=== PATIENT | male | born 1945 | race Caucasian/White ===

== ENCOUNTER 2022-06-04 14:20 | Inpatient (IN) | payer MEDICARE, BC ==
[2022-06-04] MEDS ORDERED: traMADol HCl 50 MG TAB PO PRN (23:20)
[2022-06-04] MEDS ORDERED: HYDROcodone/Acetaminophen 10/325 mg Tablet PO PRN (23:23)
[2022-06-05] MEDS ORDERED: Methocarbamol 500 MG TAB PO SCH (09:00)
[2022-06-05] MEDS ORDERED: Losartan 25 MG TAB PO SCH (09:00)
[2022-06-05] MEDS ORDERED: Famotidine 20 MG TAB PO SCH ×2 (09:00→21:00)
[2022-06-05] MEDS ORDERED: Carvedilol 25 MG TAB PO SCH (09:00)
[2022-06-05] MEDS ORDERED: Saccharomyces boulardii 250 MG CAP PO SCH (09:00)
[2022-06-05] MEDS ORDERED: Potassium Chloride 20 MEQ TAB PO SCH (09:00)
[2022-06-05] MEDS ORDERED: Aspirin 325 MG TAB PO SCH (09:00)
[2022-06-05] MEDS: Rifampin 150 MG CAP PO SCH ×2 (10:18→21:31)
[2022-06-05] MEDS ORDERED: traMADol HCl 50 MG TAB PO PRN ×2 (12:43→13:23)
[2022-06-05 13:09] LABS: #Eosinphils 0.3 thou/uL (0.0-0.7); #Lymphocytes 1.5 thou/uL (1.20-3.40); #Monocytes 0.4 thou/uL (0.11-0.59); #Neutrophils 5.9 thou/uL (1.40-6.50); %Basophils 0.5 % (0.0-1.0); %Eosinophils 4.2 % (0.0-10.0); %Lymphocytes 18.1 % (21.0-51.0); %Monocytes 4.5 % (0.0-10.0); %Neutrophils 72.6 % (42.0-75.0); Mean Corpuscular HGB CONC 31.7 g/dL (32.0-36.0); Mean Corpuscular Volume 81.9 fl (78.0-98.0); Mean Platelet Volume 6.2 fL (7.4-10.4); Platelet Count 287 10x3/uL (130-400); RBC Distribution Width 15.9 % (11.5-14.5); Red Blood Cell (RBC) Count 3.08 mill/uL (4.70-6.10); White Blood Cell (WBC) Count 8.1 10x3/uL (4.8-10.8)
[2022-06-05 13:20] LABS: ALT (SGPT) 23 U/L (8-55); AST (SGOT) 23 U/L (5-34); Albumin 2.7 g/dL (3.4-4.8); Alkaline Phosphatase 177 U/L (40-110); Anion Gap 14 mmol/L (10-20); BUN (Urea Nitrogen) 13 mg/dL (8.4-25.7); Bilirubin, Total 0.4 mg/dL (0.2-1.2); Calc. Creatinine Clearance 104 mL/min (70-130); Calcium 8.5 mg/dL (7.8-10.44); Carbon Dioxide 23 mmol/L (23-31); Chloride 104 mmol/L (98-107); Estimated GFR 69; Globulin 3.9 g/dL (2.4-3.5); Glucose 124 mg/dL (83-110); Protein, Total 6.6 g/dL (5.8-8.1); Sodium 138 mmol/L (136-145)
[2022-06-05] MEDS: Methocarbamol 500 MG TAB PO SCH ×2 (15:57→21:52)
[2022-06-05] MEDS ORDERED: RIFAMPIN 300 MG PO SCH (21:00)
[2022-06-05] MEDS ORDERED: Terazosin HCl 5 MG CAP PO SCH (21:00)
[2022-06-05] MEDS: Floranex 1 GM Packet PO SCH (21:26)
[2022-06-05] MEDS: Potassium Chloride 20 MEQ TAB PO SCH (21:30)
[2022-06-05] MEDS: Aspirin 325 MG TAB PO SCH (21:31)
[2022-06-05] MEDS: Famotidine 20 MG TAB PO SCH (21:31)
[2022-06-05] MEDS: Terazosin HCl 5 MG CAP PO SCH (21:31)
[2022-06-05] MEDS: Carvedilol 25 MG TAB PO SCH (21:32)
[2022-06-06] MEDS ORDERED: DAPTOmycin 500 MG VIAL IVPB SCH (09:00)
[2022-06-06] MEDS: Rifampin 150 MG CAP PO SCH ×2 (10:01→20:48)
[2022-06-06] MEDS: Potassium Chloride 20 MEQ TAB PO SCH ×2 (10:01→20:47)
[2022-06-06] MEDS: Floranex 1 GM Packet PO SCH ×2 (10:01→20:47)
[2022-06-06] MEDS: Aspirin 325 MG TAB PO SCH ×2 (10:01→20:47)
[2022-06-06] MEDS: Methocarbamol 500 MG TAB PO SCH ×3 (10:02→20:48)
[2022-06-06] MEDS: Carvedilol 25 MG TAB PO SCH ×2 (10:02→20:48)
[2022-06-06] MEDS: Losartan 25 MG TAB PO SCH (10:02)
[2022-06-06] MEDS: Famotidine 20 MG TAB PO SCH ×2 (10:02→20:47)
[2022-06-06] MEDS: Terazosin HCl 5 MG CAP PO SCH (20:47)
[2022-06-07] MEDS: Rifampin 150 MG CAP PO SCH ×2 (10:25→20:57)
[2022-06-07] MEDS: Losartan 25 MG TAB PO SCH (10:25)
[2022-06-07] MEDS: Potassium Chloride 20 MEQ TAB PO SCH ×2 (10:25→20:21)
[2022-06-07] MEDS: Carvedilol 25 MG TAB PO SCH ×2 (10:26→20:21)
[2022-06-07] MEDS: Floranex 1 GM Packet PO SCH ×2 (10:26→20:22)
[2022-06-07] MEDS: Famotidine 20 MG TAB PO SCH ×2 (10:26→20:21)
[2022-06-07] MEDS: Methocarbamol 500 MG TAB PO SCH ×3 (10:26→20:21)
[2022-06-07] MEDS: Aspirin 325 MG TAB PO SCH ×2 (10:26→20:21)
[2022-06-07] MEDS: Terazosin HCl 5 MG CAP PO SCH (20:21)
[2022-06-08 05:38] LABS: #Eosinphils 0.3 thou/uL (0.0-0.7); #Lymphocytes 1.6 thou/uL (1.20-3.40); #Monocytes 0.6 thou/uL (0.11-0.59); #Neutrophils 6.2 thou/uL (1.40-6.50); %Basophils 0.6 % (0.0-1.0); %Eosinophils 3.8 % (0.0-10.0); %Lymphocytes 17.8 % (21.0-51.0); %Monocytes 7.1 % (0.0-10.0); %Neutrophils 70.7 % (42.0-75.0); Mean Corpuscular HGB CONC 31.2 g/dL (32.0-36.0); Mean Corpuscular Hemoglobin 25.6 pg (27.0-31.0); Mean Corpuscular Volume 81.9 fl (78.0-98.0); Mean Platelet Volume 6.5 fL (7.4-10.4); Platelet Count 253 10x3/uL (130-400); RBC Distribution Width 15.9 % (11.5-14.5); Red Blood Cell (RBC) Count 3.14 mill/uL (4.70-6.10); White Blood Cell (WBC) Count 8.8 10x3/uL (4.8-10.8)
[2022-06-08 05:48] LABS: ALT (SGPT) 18 U/L (8-55); AST (SGOT) 18 U/L (5-34); Albumin 2.5 g/dL (3.4-4.8); Alkaline Phosphatase 160 U/L (40-110); Anion Gap 13 mmol/L (10-20); BUN (Urea Nitrogen) 23 mg/dL (8.4-25.7); Bilirubin, Total 0.2 mg/dL (0.2-1.2); Calc. Creatinine Clearance 88 mL/min (70-130); Calcium 8.5 mg/dL (7.8-10.44); Carbon Dioxide 20 mmol/L (23-31); Chloride 109 mmol/L (98-107); Estimated GFR 56; Glucose 112 mg/dL (83-110); Protein, Total 6.5 g/dL (5.8-8.1); Sodium 139 mmol/L (136-145)
[2022-06-08] MEDS ORDERED: Potassium Chloride 20 MEQ TAB PO SCH (08:00)
[2022-06-08] MEDS: Losartan 25 MG TAB PO SCH (10:13)
[2022-06-08] MEDS: Famotidine 20 MG TAB PO SCH ×2 (10:14→21:04)
[2022-06-08] MEDS: Aspirin 325 MG TAB PO SCH ×2 (10:14→21:04)
[2022-06-08] MEDS: Rifampin 150 MG CAP PO SCH ×2 (10:14→21:04)
[2022-06-08] MEDS: Floranex 1 GM Packet PO SCH ×2 (10:15→21:05)
[2022-06-08] MEDS: Carvedilol 25 MG TAB PO SCH ×2 (10:15→21:04)
[2022-06-08] MEDS: Methocarbamol 500 MG TAB PO SCH ×3 (10:15→21:04)
[2022-06-08] MEDS: Potassium Chloride 20 MEQ TAB PO SCH ×2 (12:14→18:27)
[2022-06-08] MEDS: Terazosin HCl 5 MG CAP PO SCH (21:04)
[2022-06-09] MEDS: Losartan 25 MG TAB PO SCH (08:13)
[2022-06-09] MEDS: Floranex 1 GM Packet PO SCH ×2 (08:14→20:39)
[2022-06-09] MEDS: Carvedilol 25 MG TAB PO SCH ×2 (08:14→20:38)
[2022-06-09] MEDS: Potassium Chloride 20 MEQ TAB PO SCH ×3 (08:14→17:08)
[2022-06-09] MEDS: Famotidine 20 MG TAB PO SCH ×2 (08:14→20:36)
[2022-06-09] MEDS: Methocarbamol 500 MG TAB PO SCH ×3 (08:14→20:36)
[2022-06-09] MEDS: Aspirin 325 MG TAB PO SCH ×2 (08:14→20:36)
[2022-06-09] MEDS: HYDROcodone/Acetaminophen 10/325 mg Tablet PO PRN ×2 (08:17→20:36)
[2022-06-09] MEDS: Rifampin 150 MG CAP PO SCH ×2 (08:20→21:15)
[2022-06-09] MEDS: Terazosin HCl 5 MG CAP PO SCH (20:36)
[2022-06-10 05:25] LABS: Anion Gap 12 mmol/L (10-20); BUN (Urea Nitrogen) 22 mg/dL (8.4-25.7); Calc. Creatinine Clearance 95 mL/min (70-130); Carbon Dioxide 19 mmol/L (23-31); Chloride 112 mmol/L (98-107); Estimated GFR 60; Glucose 100 mg/dL (83-110); Potassium 3.5 mmol/L (3.5-5.1); Sodium 139 mmol/L (136-145)
[2022-06-10 06:58] LABS: Calcium 8.6 mg/dL (7.8-10.44)
[2022-06-10 08:43] VITALS: BMI 35.2
[2022-06-10] MEDS: Rifampin 150 MG CAP PO SCH ×2 (09:51→20:51)
[2022-06-10] MEDS: Losartan 25 MG TAB PO SCH (09:51)
[2022-06-10] MEDS: Methocarbamol 500 MG TAB PO SCH ×3 (09:52→20:51)
[2022-06-10] MEDS: Potassium Chloride 20 MEQ TAB PO SCH ×2 (09:52→16:15)
[2022-06-10] MEDS: Floranex 1 GM Packet PO SCH ×2 (09:53→20:50)
[2022-06-10] MEDS: Famotidine 20 MG TAB PO SCH ×2 (09:53→20:52)
[2022-06-10] MEDS: Aspirin 325 MG TAB PO SCH ×2 (09:53→20:52)
[2022-06-10] MEDS: Carvedilol 25 MG TAB PO SCH ×2 (09:53→20:52)
[2022-06-10] MEDS: Terazosin HCl 5 MG CAP PO SCH (20:52)
[2022-06-11] MEDS: Rifampin 150 MG CAP PO SCH ×2 (09:51→20:54)
[2022-06-11] MEDS: Losartan 25 MG TAB PO SCH (09:52)
[2022-06-11] MEDS: Aspirin 325 MG TAB PO SCH ×2 (09:53→20:54)
[2022-06-11] MEDS: Carvedilol 25 MG TAB PO SCH ×2 (09:53→20:54)
[2022-06-11] MEDS: Famotidine 20 MG TAB PO SCH ×2 (09:53→20:55)
[2022-06-11] MEDS: Loperamide HCl 2 MG CAP PO PRN ×3 (09:53→20:57)
[2022-06-11] MEDS: Methocarbamol 500 MG TAB PO SCH ×3 (09:53→20:54)
[2022-06-11] MEDS: Floranex 1 GM Packet PO SCH ×2 (09:54→20:55)
[2022-06-11] MEDS: Potassium Chloride 20 MEQ TAB PO SCH ×3 (09:55→17:32)
[2022-06-11] MEDS: Terazosin HCl 5 MG CAP PO SCH (20:54)
[2022-06-12] MEDS: Rifampin 150 MG CAP PO SCH ×2 (09:57→20:37)
[2022-06-12] MEDS: Methocarbamol 500 MG TAB PO SCH ×3 (09:57→20:38)
[2022-06-12] MEDS: Floranex 1 GM Packet PO SCH ×2 (09:57→20:36)
[2022-06-12] MEDS: Losartan 25 MG TAB PO SCH (09:58)
[2022-06-12] MEDS: Aspirin 325 MG TAB PO SCH ×2 (09:58→20:36)
[2022-06-12] MEDS: Potassium Chloride 20 MEQ TAB PO SCH ×3 (09:58→17:37)
[2022-06-12] MEDS: Famotidine 20 MG TAB PO SCH ×2 (09:59→20:38)
[2022-06-12] MEDS: Carvedilol 25 MG TAB PO SCH ×2 (09:59→20:38)
[2022-06-12] MEDS: Terazosin HCl 5 MG CAP PO SCH (20:37)
[2022-06-13] MEDS: Famotidine 20 MG TAB PO SCH ×2 (10:06→21:46)
[2022-06-13] MEDS: Floranex 1 GM Packet PO SCH ×2 (10:06→21:46)
[2022-06-13] MEDS: Losartan 25 MG TAB PO SCH (10:07)
[2022-06-13] MEDS: Carvedilol 25 MG TAB PO SCH ×2 (10:07→21:46)
[2022-06-13] MEDS: Potassium Chloride 20 MEQ TAB PO SCH ×3 (10:07→17:54)
[2022-06-13] MEDS: Rifampin 150 MG CAP PO SCH ×2 (10:07→21:45)
[2022-06-13] MEDS: Methocarbamol 500 MG TAB PO SCH ×3 (10:07→21:46)
[2022-06-13] MEDS: Aspirin 325 MG TAB PO SCH ×2 (10:08→21:46)
[2022-06-13] MEDS: Terazosin HCl 5 MG CAP PO SCH (21:45)
[2022-06-14 05:11] LABS: #Basophils 0.1 thou/uL (0.0-0.2); #Eosinphils 0.5 thou/uL (0.0-0.7); #Lymphocytes 1.8 thou/uL (1.20-3.40); #Monocytes 0.6 thou/uL (0.11-0.59); #Neutrophils 5.9 thou/uL (1.40-6.50); %Basophils 0.7 % (0.0-1.0); %Eosinophils 5.2 % (0.0-10.0); %Lymphocytes 20.5 % (21.0-51.0); %Monocytes 7.2 % (0.0-10.0); %Neutrophils 66.4 % (42.0-75.0); Hemoglobin 7.6 g/dL (14.0-18.0); Mean Corpuscular HGB CONC 31.6 g/dL (32.0-36.0); Mean Corpuscular Hemoglobin 25.7 pg (27.0-31.0); Mean Corpuscular Volume 81.3 fl (78.0-98.0); Platelet Count 295 10x3/uL (130-400); Red Blood Cell (RBC) Count 2.96 mill/uL (4.70-6.10); White Blood Cell (WBC) Count 8.8 10x3/uL (4.8-10.8)
[2022-06-14 05:23] LABS: ALT (SGPT) 17 U/L (8-55); AST (SGOT) 21 U/L (5-34); Albumin 2.6 g/dL (3.4-4.8); Alkaline Phosphatase 124 U/L (40-110); Anion Gap 11 mmol/L (10-20); BUN (Urea Nitrogen) 16 mg/dL (8.4-25.7); Bilirubin, Total 0.4 mg/dL (0.2-1.2); Calc. Creatinine Clearance 116 mL/min (70-130); Carbon Dioxide 22 mmol/L (23-31); Chloride 112 mmol/L (98-107); Estimated GFR 77; Globulin 4.3 g/dL (2.4-3.5); Glucose 107 mg/dL (83-110); Potassium 3.8 mmol/L (3.5-5.1); Protein, Total 6.9 g/dL (5.8-8.1); Sodium 141 mmol/L (136-145)
[2022-06-14] MEDS: Potassium Chloride 20 MEQ TAB PO SCH ×3 (09:05→17:16)
[2022-06-14] MEDS: Carvedilol 25 MG TAB PO SCH ×2 (09:06→21:41)
[2022-06-14] MEDS: Rifampin 150 MG CAP PO SCH ×2 (09:06→21:41)
[2022-06-14] MEDS: Famotidine 20 MG TAB PO SCH ×2 (09:06→21:41)
[2022-06-14] MEDS: Losartan 25 MG TAB PO SCH (09:06)
[2022-06-14] MEDS: Aspirin 325 MG TAB PO SCH ×2 (09:06→21:41)
[2022-06-14] MEDS: Floranex 1 GM Packet PO SCH ×2 (09:07→21:40)
[2022-06-14] MEDS: Methocarbamol 500 MG TAB PO SCH ×3 (09:07→21:41)
[2022-06-14] MEDS ORDERED: Iopamidol 370 76% 100 ML VIAL ONE (10:24)
[2022-06-14] MEDS: Terazosin HCl 5 MG CAP PO SCH (21:41)
[2022-06-15] MEDS ORDERED: Acetaminophen 325 MG TAB PO PRN (08:57)
[2022-06-15] MEDS: Losartan 25 MG TAB PO SCH (09:50)
[2022-06-15] MEDS: Floranex 1 GM Packet PO SCH ×3 (09:50→21:26)
[2022-06-15] MEDS: Potassium Chloride 20 MEQ TAB PO SCH (09:51)
[2022-06-15] MEDS: Famotidine 20 MG TAB PO SCH ×2 (09:51→21:07)
[2022-06-15] MEDS: Methocarbamol 500 MG TAB PO SCH ×3 (09:51→21:03)
[2022-06-15] MEDS: Aspirin 325 MG TAB PO SCH ×2 (09:51→21:02)
[2022-06-15] MEDS: Rifampin 150 MG CAP PO SCH ×2 (09:51→21:01)
[2022-06-15] MEDS: Carvedilol 25 MG TAB PO SCH ×2 (09:51→21:01)
[2022-06-15] MEDS: Dextrose 5 %-0.45 % NaCl 1,000 ML IV SCH ×2 (10:45→18:36)
[2022-06-15] MEDS: Potassium Bicarbonate/Cit Ac 20 MEQ TAB PO SCH ×2 (11:43→17:19)
[2022-06-15] MEDS: Terazosin HCl 5 MG CAP PO SCH (21:01)
[2022-06-16] MEDS: Dextrose 5 %-0.45 % NaCl 1,000 ML IV SCH ×3 (02:43→20:38)
[2022-06-16 04:48] LABS: #Basophils 0.1 thou/uL (0.0-0.2); #Eosinphils 0.3 thou/uL (0.0-0.7); #Lymphocytes 1.5 thou/uL (1.20-3.40); #Monocytes 0.5 thou/uL (0.11-0.59); #Neutrophils 5.3 thou/uL (1.40-6.50); %Basophils 0.7 % (0.0-1.0); %Eosinophils 4.3 % (0.0-10.0); %Lymphocytes 19.3 % (21.0-51.0); %Neutrophils 68.7 % (42.0-75.0); Hemoglobin 7.3 g/dL (14.0-18.0); Mean Corpuscular HGB CONC 31.9 g/dL (32.0-36.0); Mean Corpuscular Hemoglobin 25.5 pg (27.0-31.0); Mean Corpuscular Volume 79.9 fl (78.0-98.0); Mean Platelet Volume 6.1 fL (7.4-10.4); Platelet Count 269 10x3/uL (130-400); RBC Distribution Width 16.2 % (11.5-14.5); Red Blood Cell (RBC) Count 2.88 mill/uL (4.70-6.10); White Blood Cell (WBC) Count 7.7 10x3/uL (4.8-10.8)
[2022-06-16] MEDS: Famotidine 20 MG TAB PO SCH ×2 (09:22→20:39)
[2022-06-16] MEDS: Floranex 1 GM Packet PO SCH ×2 (09:22→20:39)
[2022-06-16] MEDS: Potassium Bicarbonate/Cit Ac 20 MEQ TAB PO SCH ×4 (09:23→16:29)
[2022-06-16] MEDS: Methocarbamol 500 MG TAB PO SCH ×3 (09:25→20:39)
[2022-06-16] MEDS: Aspirin 325 MG TAB PO SCH ×2 (09:25→20:39)
[2022-06-16] MEDS: Rifampin 150 MG CAP PO SCH ×2 (09:26→20:39)
[2022-06-16] MEDS: Carvedilol 25 MG TAB PO SCH ×2 (09:26→20:39)
[2022-06-16] MEDS: Losartan 25 MG TAB PO SCH (09:28)
[2022-06-16] MEDS: Terazosin HCl 5 MG CAP PO SCH (20:39)
[2022-06-17] MEDS: Dextrose 5 %-0.45 % NaCl 1,000 ML IV SCH ×3 (02:41→16:32)
[2022-06-17] MEDS: Rifampin 150 MG CAP PO SCH (08:46)
[2022-06-17] MEDS: Aspirin 325 MG TAB PO SCH ×2 (08:46→21:51)
[2022-06-17] MEDS: Famotidine 20 MG TAB PO SCH ×2 (08:47→21:51)
[2022-06-17] MEDS: Losartan 25 MG TAB PO SCH (08:47)
[2022-06-17] MEDS: Methocarbamol 500 MG TAB PO SCH ×3 (08:48→21:51)
[2022-06-17] MEDS: Carvedilol 25 MG TAB PO SCH ×2 (08:48→21:52)
[2022-06-17] MEDS: Floranex 1 GM Packet PO SCH ×2 (09:02→21:51)
[2022-06-17] MEDS: Potassium Bicarbonate/Cit Ac 20 MEQ TAB PO SCH ×3 (09:02→16:30)
[2022-06-17] MEDS: Terazosin HCl 5 MG CAP PO SCH (21:51)
[2022-06-18] MEDS: Potassium Bicarbonate/Cit Ac 20 MEQ TAB PO SCH ×3 (08:14→16:33)
[2022-06-18] MEDS: Losartan 25 MG TAB PO SCH (08:14)
[2022-06-18] MEDS: Carvedilol 25 MG TAB PO SCH ×2 (08:15→21:01)
[2022-06-18] MEDS: Famotidine 20 MG TAB PO SCH ×2 (08:15→21:01)
[2022-06-18] MEDS: Methocarbamol 500 MG TAB PO SCH ×3 (08:16→21:01)
[2022-06-18] MEDS: Floranex 1 GM Packet PO SCH ×2 (08:16→21:01)
[2022-06-18] MEDS: Aspirin 325 MG TAB PO SCH ×2 (08:16→21:00)
[2022-06-18] MEDS: Atorvastatin Calcium 40 MG TAB PO SCH (21:00)
[2022-06-18] MEDS: Terazosin HCl 5 MG CAP PO SCH (21:01)
[2022-06-18] MEDS: Doxycycline 100 MG CAP PO SCH (21:01)
[2022-06-19] MEDS: Famotidine 20 MG TAB PO SCH ×2 (08:53→20:48)
[2022-06-19] MEDS: Losartan 25 MG TAB PO SCH (08:53)
[2022-06-19] MEDS: Floranex 1 GM Packet PO SCH ×2 (08:54→20:48)
[2022-06-19] MEDS: Potassium Bicarbonate/Cit Ac 20 MEQ TAB PO SCH ×3 (08:54→16:54)
[2022-06-19] MEDS: Aspirin 325 MG TAB PO SCH ×2 (08:54→20:48)
[2022-06-19] MEDS: Carvedilol 25 MG TAB PO SCH ×2 (08:54→20:49)
[2022-06-19] MEDS: Doxycycline 100 MG CAP PO SCH ×2 (08:54→20:49)
[2022-06-19] MEDS: Methocarbamol 500 MG TAB PO SCH ×3 (08:54→20:49)
[2022-06-19] MEDS: Terazosin HCl 5 MG CAP PO SCH (20:48)
[2022-06-19] MEDS: Atorvastatin Calcium 40 MG TAB PO SCH (20:49)
[2022-06-20] MEDS: Potassium Bicarbonate/Cit Ac 20 MEQ TAB PO SCH ×3 (08:45→17:11)
[2022-06-20] MEDS: Floranex 1 GM Packet PO SCH ×2 (08:46→20:49)
[2022-06-20] MEDS: Carvedilol 25 MG TAB PO SCH ×2 (08:46→20:49)
[2022-06-20] MEDS: Famotidine 20 MG TAB PO SCH ×2 (08:46→20:49)
[2022-06-20] MEDS: Aspirin 325 MG TAB PO SCH ×2 (08:46→20:49)
[2022-06-20] MEDS: Doxycycline 100 MG CAP PO SCH ×2 (08:47→20:49)
[2022-06-20] MEDS: Methocarbamol 500 MG TAB PO SCH ×3 (08:47→20:48)
[2022-06-20] MEDS: Losartan 25 MG TAB PO SCH (08:47)
[2022-06-20] MEDS: Atorvastatin Calcium 40 MG TAB PO SCH (20:48)
[2022-06-20] MEDS: Terazosin HCl 5 MG CAP PO SCH (20:49)
[2022-06-21 05:39] LABS: ALT (SGPT) 24 U/L (8-55); AST (SGOT) 23 U/L (5-34); Albumin 2.5 g/dL (3.4-4.8); Alkaline Phosphatase 101 U/L (40-110); Anion Gap 12 mmol/L (10-20); BUN (Urea Nitrogen) 15 mg/dL (8.4-25.7); Bilirubin, Total 0.3 mg/dL (0.2-1.2); Calc. Creatinine Clearance 117 mL/min (70-130); Calcium 8.7 mg/dL (7.8-10.44); Carbon Dioxide 26 mmol/L (23-31); Chloride 107 mmol/L (98-107); Estimated GFR 78; Globulin 4.2 g/dL (2.4-3.5); Glucose 97 mg/dL (83-110); Potassium 2.8 mmol/L (3.5-5.1); Protein, Total 6.7 g/dL (5.8-8.1); Sodium 142 mmol/L (136-145)
[2022-06-21 06:36] LABS: #Eosinphils 0.1 thou/uL (0.0-0.7); #Lymphocytes 1.7 thou/uL (1.20-3.40); #Monocytes 0.6 thou/uL (0.11-0.59); #Neutrophils 4.4 thou/uL (1.40-6.50); %Basophils 0.7 % (0.0-1.0); %Eosinophils 1.9 % (0.0-10.0); %Lymphocytes 24.4 % (21.0-51.0); %Monocytes 8.1 % (0.0-10.0); %Neutrophils 64.9 % (42.0-75.0); Hemoglobin 7.7 g/dL (14.0-18.0); Mean Corpuscular HGB CONC 31.1 g/dL (32.0-36.0); Mean Corpuscular Volume 80.2 fl (78.0-98.0); Mean Platelet Volume 6.4 fL (7.4-10.4); Platelet Count 251 10x3/uL (130-400); RBC Distribution Width 16.6 % (11.5-14.5); Red Blood Cell (RBC) Count 3.08 mill/uL (4.70-6.10); White Blood Cell (WBC) Count 6.9 10x3/uL (4.8-10.8)
[2022-06-21 06:37] LABS: Crenated RBC SLIGHT = 1-5 cells (100X) (None Seen); MDiff Complete? YES; Microcytosis SLIGHT = 6-15 cells (100X) (0-5/hpf); Ovalocytes SLIGHT = 2-5 cells (100X) (0-1/hpf); Platelet Morphology Comment Appears Adequate
[2022-06-21] MEDS: Losartan 25 MG TAB PO SCH (09:02)
[2022-06-21] MEDS: Aspirin 325 MG TAB PO SCH (09:02)
[2022-06-21] MEDS: Carvedilol 25 MG TAB PO SCH ×2 (09:02→21:01)
[2022-06-21] MEDS: Potassium Bicarbonate/Cit Ac 20 MEQ TAB PO SCH (09:02)
[2022-06-21] MEDS: Famotidine 20 MG TAB PO SCH ×2 (09:03→21:01)
[2022-06-21] MEDS: Methocarbamol 500 MG TAB PO SCH ×3 (09:03→21:01)
[2022-06-21] MEDS: Doxycycline 100 MG CAP PO SCH ×2 (09:03→21:01)
[2022-06-21] MEDS: Floranex 1 GM Packet PO SCH (09:03)
[2022-06-21] MEDS ORDERED: traMADol HCl 50 MG TAB PO PRN (11:06)
[2022-06-21] MEDS ORDERED: Saccharomyces boulardii 250 MG CAP PO SCH (11:30)
[2022-06-21] MEDS: Potassium Chloride 20 MEQ TAB PO SCH ×2 (12:33→17:14)
[2022-06-21] MEDS: Atorvastatin Calcium 40 MG TAB PO SCH (21:01)
[2022-06-21] MEDS: Terazosin HCl 5 MG CAP PO SCH (21:01)
[2022-06-22 05:38] LABS: Hemoglobin 7.6 g/dL (14.0-18.0); Platelet Count 278 10x3/uL (130-400)
[2022-06-22 05:59] LABS: Anion Gap 11 mmol/L (10-20); BUN (Urea Nitrogen) 17 mg/dL (8.4-25.7); Calc. Creatinine Clearance 129 mL/min (70-130); Calcium 8.7 mg/dL (7.8-10.44); Carbon Dioxide 25 mmol/L (23-31); Chloride 108 mmol/L (98-107); Estimated GFR 87; Glucose 95 mg/dL (83-110); Potassium 3.1 mmol/L (3.5-5.1); Sodium 141 mmol/L (136-145)
[2022-06-22] MEDS: Potassium Chloride 20 MEQ TAB PO SCH ×3 (09:21→17:30)
[2022-06-22] MEDS: Methocarbamol 500 MG TAB PO SCH ×3 (09:22→20:53)
[2022-06-22] MEDS: Carvedilol 25 MG TAB PO SCH ×2 (09:22→20:52)
[2022-06-22] MEDS: Doxycycline 100 MG CAP PO SCH ×2 (09:22→20:53)
[2022-06-22] MEDS: Saccharomyces boulardii 250 MG CAP PO SCH (09:22)
[2022-06-22] MEDS: Losartan 25 MG TAB PO SCH (09:22)
[2022-06-22] MEDS: Famotidine 20 MG TAB PO SCH ×2 (09:22→20:53)
[2022-06-22] MEDS: Atorvastatin Calcium 40 MG TAB PO SCH (20:52)
[2022-06-22] MEDS: Terazosin HCl 5 MG CAP PO SCH (20:53)
[2022-06-23 05:24] LABS: Anion Gap 9 mmol/L (10-20); BUN (Urea Nitrogen) 18 mg/dL (8.4-25.7); Calc. Creatinine Clearance 120 mL/min (70-130); Calcium 8.6 mg/dL (7.8-10.44); Carbon Dioxide 27 mmol/L (23-31); Chloride 106 mmol/L (98-107); Estimated GFR 79; Glucose 97 mg/dL (83-110); Potassium 3.1 mmol/L (3.5-5.1); Sodium 139 mmol/L (136-145)
[2022-06-23 05:25] LABS: Hemoglobin 7.6 g/dL (14.0-18.0); Platelet Count 261 10x3/uL (130-400)
[2022-06-23] MEDS: Famotidine 20 MG TAB PO SCH ×2 (08:10→20:12)
[2022-06-23] MEDS: Methocarbamol 500 MG TAB PO SCH ×3 (08:10→20:12)
[2022-06-23] MEDS: Losartan 25 MG TAB PO SCH (08:10)
[2022-06-23] MEDS: Saccharomyces boulardii 250 MG CAP PO SCH ×2 (08:11→16:24)
[2022-06-23] MEDS: Doxycycline 100 MG CAP PO SCH ×2 (08:11→20:12)
[2022-06-23] MEDS: Potassium Chloride 20 MEQ TAB PO SCH ×3 (08:11→16:28)
[2022-06-23] MEDS: Carvedilol 25 MG TAB PO SCH ×2 (08:12→20:12)
[2022-06-23] MEDS ORDERED: Iopamidol 370 76% 50 ML VIAL FS ONE (08:52)
[2022-06-23 11:22] LABS: Campy jejuni + coli by PCR Negative (Negative); STEC Shiga Toxin 1+2 Negative (Negative); Salmonella spp. by PCR Negative (Negative); Shigella spp + EIEC by PCR Negative (Negative)
[2022-06-23] MEDS: Terazosin HCl 5 MG CAP PO SCH (20:11)
[2022-06-23] MEDS: Atorvastatin Calcium 40 MG TAB PO SCH (20:12)
[2022-06-24 05:25] LABS: #Basophils 0.1 thou/uL (0.0-0.2); #Eosinphils 0.2 thou/uL (0.0-0.7); #Lymphocytes 1.9 thou/uL (1.20-3.40); #Monocytes 0.6 thou/uL (0.11-0.59); #Neutrophils 5.7 thou/uL (1.40-6.50); %Basophils 0.8 % (0.0-1.0); %Eosinophils 1.9 % (0.0-10.0); %Lymphocytes 22.3 % (21.0-51.0); %Monocytes 7.1 % (0.0-10.0); Hemoglobin 7.5 g/dL (14.0-18.0); Mean Corpuscular HGB CONC 30.7 g/dL (32.0-36.0); Mean Corpuscular Hemoglobin 25.1 pg (27.0-31.0); Mean Corpuscular Volume 81.7 fl (78.0-98.0); Mean Platelet Volume 6.7 fL (7.4-10.4); Platelet Count 259 10x3/uL (130-400); RBC Distribution Width 17.3 % (11.5-14.5); Red Blood Cell (RBC) Count 2.97 mill/uL (4.70-6.10); White Blood Cell (WBC) Count 8.3 10x3/uL (4.8-10.8)
[2022-06-24 05:39] LABS: Anion Gap 11 mmol/L (10-20); BUN (Urea Nitrogen) 19 mg/dL (8.4-25.7); Calc. Creatinine Clearance 122 mL/min (70-130); Calcium 8.6 mg/dL (7.8-10.44); Carbon Dioxide 24 mmol/L (23-31); Chloride 108 mmol/L (98-107); Estimated GFR 81; Glucose 93 mg/dL (83-110); Sodium 140 mmol/L (136-145)
[2022-06-24] MEDS: Methocarbamol 500 MG TAB PO SCH ×3 (08:39→21:03)
[2022-06-24] MEDS: Doxycycline 100 MG CAP PO SCH ×2 (08:39→21:03)
[2022-06-24] MEDS: Potassium Chloride 20 MEQ TAB PO SCH ×3 (08:39→16:23)
[2022-06-24] MEDS: Losartan 25 MG TAB PO SCH (08:40)
[2022-06-24] MEDS: Saccharomyces boulardii 250 MG CAP PO SCH (08:40)
[2022-06-24] MEDS: Famotidine 20 MG TAB PO SCH ×2 (08:40→21:03)
[2022-06-24] MEDS: Carvedilol 25 MG TAB PO SCH ×2 (08:41→21:03)
[2022-06-24] MEDS: Terazosin HCl 5 MG CAP PO SCH (21:02)
[2022-06-24] MEDS: Atorvastatin Calcium 40 MG TAB PO SCH (21:03)
[2022-06-25 04:36] LABS: #Eosinphils 0.2 thou/uL (0.0-0.7); #Monocytes 0.6 thou/uL (0.11-0.59); #Neutrophils 4.7 thou/uL (1.40-6.50); %Basophils 0.6 % (0.0-1.0); %Eosinophils 2.7 % (0.0-10.0); %Monocytes 8.4 % (0.0-10.0); %Neutrophils 62.3 % (42.0-75.0); Hemoglobin 7.6 g/dL (14.0-18.0); Mean Corpuscular HGB CONC 31.5 g/dL (32.0-36.0); Mean Corpuscular Hemoglobin 25.3 pg (27.0-31.0); Mean Corpuscular Volume 80.3 fl (78.0-98.0); Mean Platelet Volume 6.7 fL (7.4-10.4); Platelet Count 246 10x3/uL (130-400); RBC Distribution Width 17.2 % (11.5-14.5); Red Blood Cell (RBC) Count 2.99 mill/uL (4.70-6.10); White Blood Cell (WBC) Count 7.5 10x3/uL (4.8-10.8)
[2022-06-25 04:54] LABS: Anion Gap 9 mmol/L (10-20); BUN (Urea Nitrogen) 21 mg/dL (8.4-25.7); Calc. Creatinine Clearance 112 mL/min (70-130); Calcium 8.7 mg/dL (7.8-10.44); Carbon Dioxide 24 mmol/L (23-31); Chloride 110 mmol/L (98-107); Estimated GFR 73; Glucose 101 mg/dL (83-110); Potassium 3.3 mmol/L (3.5-5.1); Sodium 140 mmol/L (136-145)
[2022-06-25] MEDS: Potassium Chloride 20 MEQ TAB PO SCH ×3 (08:15→18:45)
[2022-06-25] MEDS: Losartan 25 MG TAB PO SCH (09:10)
[2022-06-25] MEDS: Carvedilol 25 MG TAB PO SCH ×2 (09:10→22:29)
[2022-06-25] MEDS: Famotidine 20 MG TAB PO SCH ×2 (09:10→22:28)
[2022-06-25] MEDS: Methocarbamol 500 MG TAB PO SCH ×3 (09:10→22:29)
[2022-06-25] MEDS: Doxycycline 100 MG CAP PO SCH ×2 (09:11→22:29)
[2022-06-25] MEDS ORDERED: Saccharomyces boulardii 250 MG CAP PO SCH (09:45)
[2022-06-25] MEDS: Atorvastatin Calcium 40 MG TAB PO SCH (22:28)
[2022-06-25] MEDS: Terazosin HCl 5 MG CAP PO SCH (22:29)
[2022-06-26 05:46] LABS: #Basophils 0.1 thou/uL (0.0-0.2); #Eosinphils 0.2 thou/uL (0.0-0.7); #Lymphocytes 1.9 thou/uL (1.20-3.40); #Monocytes 0.6 thou/uL (0.11-0.59); #Neutrophils 5.2 thou/uL (1.40-6.50); %Basophils 0.6 % (0.0-1.0); %Eosinophils 2.5 % (0.0-10.0); %Lymphocytes 23.5 % (21.0-51.0); %Monocytes 7.9 % (0.0-10.0); %Neutrophils 65.4 % (42.0-75.0); Hemoglobin 7.7 g/dL (14.0-18.0); Mean Corpuscular HGB CONC 31.3 g/dL (32.0-36.0); Mean Corpuscular Hemoglobin 25.3 pg (27.0-31.0); Mean Platelet Volume 7.1 fL (7.4-10.4); Platelet Count 266 10x3/uL (130-400); RBC Distribution Width 17.4 % (11.5-14.5); Red Blood Cell (RBC) Count 3.02 mill/uL (4.70-6.10)
[2022-06-26 05:47] LABS: Anion Gap 8 mmol/L (10-20); BUN (Urea Nitrogen) 21 mg/dL (8.4-25.7); Calc. Creatinine Clearance 117 mL/min (70-130); Carbon Dioxide 24 mmol/L (23-31); Chloride 111 mmol/L (98-107); Estimated GFR 78; Glucose 98 mg/dL (83-110); Potassium 3.4 mmol/L (3.5-5.1); Sodium 140 mmol/L (136-145)
[2022-06-26 05:48] LABS: Calcium 8.8 mg/dL (7.8-10.44)
[2022-06-26] MEDS: Losartan 25 MG TAB PO SCH (10:34)
[2022-06-26] MEDS: Saccharomyces boulardii 250 MG CAP PO SCH (10:35)
[2022-06-26] MEDS: Doxycycline 100 MG CAP PO SCH ×2 (10:35→21:10)
[2022-06-26] MEDS: Carvedilol 25 MG TAB PO SCH ×2 (10:36→21:10)
[2022-06-26] MEDS: Famotidine 20 MG TAB PO SCH ×2 (10:36→21:09)
[2022-06-26] MEDS: Potassium Chloride 20 MEQ TAB PO SCH ×3 (10:36→17:42)
[2022-06-26] MEDS: Methocarbamol 500 MG TAB PO SCH ×3 (10:41→21:09)
[2022-06-26] MEDS: Terazosin HCl 5 MG CAP PO SCH (21:09)
[2022-06-26] MEDS: Atorvastatin Calcium 40 MG TAB PO SCH (21:10)
[2022-06-27 05:58] LABS: #Eosinphils 0.2 thou/uL (0.0-0.7); #Lymphocytes 1.7 thou/uL (1.20-3.40); #Monocytes 0.6 thou/uL (0.11-0.59); #Neutrophils 4.5 thou/uL (1.40-6.50); %Basophils 0.6 % (0.0-1.0); %Eosinophils 2.2 % (0.0-10.0); %Lymphocytes 24.2 % (21.0-51.0); %Monocytes 9.1 % (0.0-10.0); %Neutrophils 63.9 % (42.0-75.0); Hemoglobin 7.6 g/dL (14.0-18.0); Mean Corpuscular HGB CONC 31.6 g/dL (32.0-36.0); Mean Corpuscular Hemoglobin 25.6 pg (27.0-31.0); Mean Corpuscular Volume 81.1 fl (78.0-98.0); Mean Platelet Volume 6.3 fL (7.4-10.4); Platelet Count 226 10x3/uL (130-400); RBC Distribution Width 17.4 % (11.5-14.5); Red Blood Cell (RBC) Count 2.96 mill/uL (4.70-6.10)
[2022-06-27 06:14] LABS: Anion Gap 9 mmol/L (10-20); BUN (Urea Nitrogen) 19 mg/dL (8.4-25.7); Calc. Creatinine Clearance 120 mL/min (70-130); Calcium 8.7 mg/dL (7.8-10.44); Carbon Dioxide 22 mmol/L (23-31); Chloride 112 mmol/L (98-107); Estimated GFR 79; Glucose 95 mg/dL (83-110); Potassium 3.2 mmol/L (3.5-5.1); Sodium 140 mmol/L (136-145)
[2022-06-27] MEDS: Losartan 25 MG TAB PO SCH (10:02)
[2022-06-27] MEDS: Potassium Chloride 20 MEQ TAB PO SCH ×3 (10:03→17:36)
[2022-06-27] MEDS: Saccharomyces boulardii 250 MG CAP PO SCH (10:03)
[2022-06-27] MEDS: Doxycycline 100 MG CAP PO SCH ×2 (10:03→20:49)
[2022-06-27] MEDS: Methocarbamol 500 MG TAB PO SCH ×3 (10:04→20:49)
[2022-06-27] MEDS: Carvedilol 25 MG TAB PO SCH ×2 (10:04→20:49)
[2022-06-27] MEDS: Famotidine 20 MG TAB PO SCH ×2 (10:05→20:50)
[2022-06-27] MEDS: Terazosin HCl 5 MG CAP PO SCH (20:49)
[2022-06-27] MEDS: Atorvastatin Calcium 40 MG TAB PO SCH (20:49)
[2022-06-28 05:41] LABS: #Eosinphils 0.2 thou/uL (0.0-0.7); #Monocytes 0.7 thou/uL (0.11-0.59); #Neutrophils 4.4 thou/uL (1.40-6.50); %Basophils 0.6 % (0.0-1.0); %Eosinophils 2.4 % (0.0-10.0); %Lymphocytes 27.5 % (21.0-51.0); %Monocytes 8.9 % (0.0-10.0); %Neutrophils 60.6 % (42.0-75.0); Hemoglobin 7.4 g/dL (14.0-18.0); Mean Corpuscular Hemoglobin 25.1 pg (27.0-31.0); Mean Platelet Volume 7.2 fL (7.4-10.4); Platelet Count 234 10x3/uL (130-400); RBC Distribution Width 17.7 % (11.5-14.5); Red Blood Cell (RBC) Count 2.93 mill/uL (4.70-6.10); White Blood Cell (WBC) Count 7.3 10x3/uL (4.8-10.8)
[2022-06-28 05:50] LABS: Anion Gap 10 mmol/L (10-20); BUN (Urea Nitrogen) 20 mg/dL (8.4-25.7); Calc. Creatinine Clearance 127 mL/min (70-130); Calcium 8.8 mg/dL (7.8-10.44); Carbon Dioxide 22 mmol/L (23-31); Chloride 113 mmol/L (98-107); Estimated GFR 86; Glucose 97 mg/dL (83-110); Potassium 3.4 mmol/L (3.5-5.1); Sodium 142 mmol/L (136-145)
[2022-06-28] MEDS: Potassium Chloride 20 MEQ TAB PO SCH ×3 (08:06→16:52)
[2022-06-28] MEDS: Losartan 25 MG TAB PO SCH (08:06)
[2022-06-28] MEDS: Methocarbamol 500 MG TAB PO SCH ×3 (08:08→20:25)
[2022-06-28] MEDS: Saccharomyces boulardii 250 MG CAP PO SCH (08:08)
[2022-06-28] MEDS: Doxycycline 100 MG CAP PO SCH ×2 (08:08→20:25)
[2022-06-28] MEDS: Famotidine 20 MG TAB PO SCH ×2 (08:08→20:26)
[2022-06-28] MEDS: Carvedilol 25 MG TAB PO SCH ×2 (08:08→20:26)
[2022-06-28] MEDS: Terazosin HCl 5 MG CAP PO SCH (20:25)
[2022-06-28] MEDS: Atorvastatin Calcium 40 MG TAB PO SCH (20:26)
[2022-06-29 06:30] VITALS: BP 122/71; TEMP 98.4
[2022-06-29] MEDS: Losartan 25 MG TAB PO SCH (08:37)
[2022-06-29] MEDS: Carvedilol 25 MG TAB PO SCH (08:38)
[2022-06-29] MEDS: Saccharomyces boulardii 250 MG CAP PO SCH (08:38)
[2022-06-29] MEDS: Potassium Chloride 20 MEQ TAB PO SCH (08:38)
[2022-06-29] MEDS: Methocarbamol 500 MG TAB PO SCH (08:38)
[2022-06-29] MEDS: Famotidine 20 MG TAB PO SCH (08:38)
[2022-06-30 10:16] LABS: Routine O & P Final report (.)
== END 2022-06-29 11:15 | disposition home health service (06) | DRG 948 ==
LOC: BURMED 23:00
PROVIDERS: ADMIT Family Medicine; ATTEND Nurse Practitioner
DX: R53.81 Other malaise (principal); N17.9 Acute kidney failure, unspecified; K56.7 Ileus, unspecified; R63.0 Anorexia; E87.6 Hypokalemia; I48.91 Unspecified atrial fibrillation; I10 Essential (primary) hypertension; E78.00 Pure hypercholesterolemia, unspecified; K21.9 Gastro-esophageal reflux disease without esophagitis; Z96.643 Presence of artificial hip joint, bilateral; Z96.619 Presence of unspecified artificial shoulder joint; Z90.89 Acquired absence of other organs; Z79.82 Long term (current) use of aspirin; Z79.899 Other long term (current) drug therapy; Z88.1 Allergy status to other antibiotic agents; Z88.2 Allergy status to sulfonamides; Z88.8 Allergy status to other drugs, medicaments and biological substances
CPT/HCPCS: 36415; 74018; 74176; 74177; 80048; 80053; 82550; 85014; 85018; 85025; 85049; 87177; 87324; 87449; 87505; J0878; J1650; J3490; J7042; Q9967